=== PATIENT | male | born 1980 | race Caucasian/White ===

== ENCOUNTER 2017-02-14 13:47 | Emergency (ER) | payer MEDICAID ==
[~2017-02-14] VITALS: Ht 175.2 cm; Wt 65.8 kg
[~2017-02-14 13:47] MED LIST: AUGMENTIN 875 M1 TAB PO
== END 2017-02-14 14:24 | disposition home or self-care (01) ==
LOC: ED 13:47
DX: S81.011A Laceration without foreign body, right knee, initial encounter (principal); F17.200 Nicotine dependence, unspecified, uncomplicated; X58.XXXA Exposure to other specified factors, initial encounter; Y93.89 Activity, other specified; Y92.9 Unspecified place or not applicable; Y99.9 Unspecified external cause status